=== PATIENT | female | born 1975 | race Caucasian/White ===

== ENCOUNTER 2025-08-12 07:04 | Day surgery (SDC) | payer BC ==
[2025-08-12] MEDS ORDERED: Ringers Lactate 1,000 ML IV ONE (07:23)
[2025-08-12] MEDS ORDERED: KETOROLAC 30 MG/ML INJ ONE (09:41)
[2025-08-12] MEDS ORDERED: LIDOCAINE 2% MPF 5 ML VIAL ONE (09:41)
[2025-08-12] MEDS ORDERED: ONDANSETRON 4 MG/2 ML VIAL ONE (09:41)
[2025-08-12] MEDS ORDERED: FENTANYL CITR 100 MCG/2 ML ONE (09:42)
[2025-08-12] MEDS ORDERED: MIDAZOLAM HCL 2 MG/2 ML INJ ONE (09:42)
[2025-08-12] MEDS: CEFAZOLIN SODIUM 1 GM/VIAL ONE (09:52)
[2025-08-12] MEDS ORDERED: NS 0.9% VIAL 10 ML ONE (10:06)
[2025-08-12] MEDS: HYDROMORPHONE HCL 1 MG/ML INJ ONE (11:05)
[2025-08-12 11:31] VITALS: TEMP 97
[2025-08-12 12:15] VITALS: BP 138/87; O2SAT 97
--- NOTE | 2025-08-12 20:03 | OP ---
Date of Procedure: 08/12/2025 Surgeon: Festus Harvey MD Preoperative Diagnosis: Right knee pain with mechanical symptoms, probable meniscal tear or tears wi th some degenerative changes. Postoperative Diagnoses: 1. Medial meniscal tear. 2. Scar band medially. 3. 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 Procedures: 1. Arthroscopy with debridement of medial meniscus. 2. Takedown of scar band. 3. Light abrasive chondroplasty of unstable flap, medial femoral condyle. Estimated Blood Loss: 10 cc. Complications: There were no complications. Specimens: No pathology specimens sent. Indication For Operation: The patient is a 50-year-old female who has been troubled with pain, mecha nical problems with the right knee for some time. She does have an MRI, which demonstrates a medial meniscal tear as well as other degenerative changes. This progressed despite conservative management and risks, benefits, and alternatives of different methods of treating this have been discussed with her. She selects arthroscopy and the risks, benefits and alternatives of this particular procedure have been discussed. She states she understands things as presented, wished to proceed. Description Of Procedure: The patient was taken to the operating room, placed in supine position. G eneral anesthesia was easily obtained by staff. Following this, a well-padded tourniquet was placed on superior right thigh. Right lower extremity was then prepped and draped in the usual sterile fash ion for the procedure. Following this, a standard superomedial arthroscopy portal was then placed w ith liberation of approximately 30 cc of normal-appearing synovial fluid. This was followed by place ment of inferolateral portal atraumatically with 1 pass. The knee was then sequentially examined inc luding the suprapatellar pouch, the patellofemoral joint, the medial and lateral gutters, the medial compartments, as well as the notch. Pertinent findings included what appeared to be unstable chondr al flap as well as chondral deficit on the medial femoral condyle with reciprocal changes of the tibi a. Also, seen is what appears to be a complex tear of the medial meniscus. There was also seen a ba nd of tissue, which progressed along the medial femoral condyle, did not appear to represent a plica, but did have some ropy appearance. A standard inferior medial arthroscopy portal was then placed us ing a needle for localization. This was used as a working portal. Attention was first turned to the medial meniscus. The medial meniscus was further probed and delineated. It was found to have 2 uns table radial flaps as well as a horizontal component. The meniscus was then debrided back to a firm, well contoured stable base throughout. Attention was turned to the lateral compartment, which was p robed. Lateral part appeared to be free from pathology. Attention was then turned to the chondral s urface of the distal femur and palpated with a probe. There was found to be several small unstable f laps and there was some chondral debridement done there, but no debridement was done and it was absol utely unstable. After this, attention was then turned to what appeared to be a scar band or at least thickened synovium, although did have a ropy appearance. This was then debrided using a shaver. Th e knee was then examined, involved above areas without any further pathology seen, which was amenable to arthroscopic intervention. The inferior arthroscopy portals were then stapled shut. Superomedia l arthroscopy portal was used for placement of Marcaine. It was then stapled. The patient was place d in a well-padded sterile dressing, awakened, taken to recovery room in good condition. No complica tions. SE/MODL Voice ID: [id number] Report ID: [id number]
== END 2025-08-12 12:07 | disposition home or self-care (01) ==
LOC: OR 07:04
PROVIDERS: ATTEND Orthopaedic Surgery
PROC: 0SBC4ZZ Excision of Right Knee Joint, Percutaneous Endoscopic Approach (ICD-10-PCS; principal; 2025-08-12 09:45)
DX: S83.241A Other tear of medial meniscus, current injury, right knee, initial encounter (principal); M94.261 Chondromalacia, right knee
CPT/HCPCS: 93005; 29881; 29879; J1885; A4216; J2704; J2003; J2250; J3010; J1100; J1171; J2405; J7120; J0690